=== PATIENT | male | born 1965 | race Asian ===

== ENCOUNTER 2017-05-03 00:49 | Emergency (ER) | payer SELFPAY ==
[~2017-05-03] VITALS: Ht 185.4 cm; Wt 86.0 kg
[~2017-05-03 00:49] MED LIST: NOCURR
[2017-05-03 00:54] VITALS: BP 143/96
[2017-05-03] MEDS ORDERED: ACETAMINOPHEN 500 MG TABLET PO ONE (02:15)
[2017-05-03] MEDS ORDERED: PROPARACAINE HCL 0.5% 15 ML OPHTHALMIC SOLUTION OU ONE (02:15)
[2017-05-03] MEDS ORDERED: FLUORESCEIN SODIUM 1 MG STRIP ONE (02:21)
== END 2017-05-03 02:51 | disposition left against medical advice (07) ==
LOC: EDUNIT# 00:49 → EMS 00:50
DX: H57.13 Ocular pain, bilateral (principal); Z91.013 Allergy to seafood
CPT/HCPCS: 99283

== ENCOUNTER 2018-07-05 07:06 | Emergency (ER) | payer OTHER ==
[~2018-07-05] VITALS: Ht 182.9 cm; Wt 79.5 kg
[2018-07-05] MEDS ORDERED: METF-960 PO (07:25)
[2018-07-05 07:34] LABS: GLUCOSE,POINT OF CARE 223 MG/DL (70-110)
[2018-07-05] MEDS ORDERED: ACETAMINOPHEN/CODEINE 300-30 MG TABLET PO ONE (08:45)
[2018-07-05] MEDS ORDERED: PROPARACAINE HCL 0.5% 15 ML OPHTHALMIC SOLUTION OU ONE (08:45)
[2018-07-05] MEDS ORDERED: ERYTHROMYCIN 0.5% 3.5 GM TUBE OPHTHALMIC OINTMENT OD ONE (08:45)
[2018-07-05 10:08] VITALS: BP 150/113
== END 2018-07-05 10:23 | disposition home or self-care (01) ==
LOC: EMS 07:07
DX: S05.01XA Injury of conjunctiva and corneal abrasion without foreign body, right eye, initial encounter (principal); E11.65 Type 2 diabetes mellitus with hyperglycemia; I10 Essential (primary) hypertension; Z79.84 Long term (current) use of oral hypoglycemic drugs; Z91.013 Allergy to seafood; X58.XXXA Exposure to other specified factors, initial encounter; Y93.89 Activity, other specified; Y92.89 Other specified places as the place of occurrence of the external cause; Y99.8 Other external cause status